=== PATIENT | female | born 2000 | race Caucasian/White ===

== ENCOUNTER 2021-10-22 16:34 | Outpatient (CLI) | payer MEDICAID, SELFPAY ==
[2021-10-22 16:36] VITALS: BP 119/60; PULSE 63; RESP 14; O2SAT 98; BMI 23.5
[2021-10-22 16:38] VITALS: TEMP 36.6; BMI 23.5
[2021-10-22] MEDS: Rabies Vaccine,Human Diploid 2.5 UNITS Vial IM (17:12)
== END 2021-10-22 18:07 | disposition home or self-care (01) ==
PROVIDERS: Visit Provider Emergency Medicine
DX: Z23 Encounter for immunization (principal)
CPT/HCPCS: 90675; 96372

== ENCOUNTER 2021-10-26 21:00 | Outpatient (CLI) | payer MEDICAID, SELFPAY ==
[2021-10-26 21:01] VITALS: BP 108/61; PULSE 55; RESP 16; TEMP 36.9; O2SAT 100
[2021-10-26] MEDS: Rabies Vaccine,Human Diploid 2.5 UNITS Vial IM (21:10)
== END 2021-10-26 21:24 | disposition home or self-care (01) ==
LOC: ED 21:23
DX: Z23 Encounter for immunization (principal)
CPT/HCPCS: 90675; 96372